=== PATIENT | female | born 1955 | race Two or more races ===

== ENCOUNTER 2021-06-28 18:27 | Inpatient (IN) | payer MEDICAID ==
[~2021-06-28] VITALS: Ht 167.6 cm; Wt 88.5 kg
[2021-06-28 22:19] LABS: HEMATOCRIT. 37.3 % (36.0-48.0); MEAN CORPUSCULAR HEMOGLOBIN 29.8 pg (28.0-32.0); MEAN CORPUSCULAR VOLUME 85.8 fL (81.0-99.0); MEAN PLATELET VOLUME 11.1 fl (7.4-10.4); PLATELET 173 x1000/uL (130-400); RED BLOOD CELL COUNT 4.35 mill/uL (4.2-5.4); RED CELL DISTRIBUTION WIDTH 14.2 % (11.6-14.6)
[2021-06-28 22:22] LABS: CHLORIDE 104 mEq/L (98-107)
[2021-06-28] MEDS ORDERED: ACETAMINOPHEN 325MG TABLET PO STA (22:41)
[2021-06-28] MEDS ORDERED: SODIUM CHLORIDE 0.9% 1,000 ML IV ONE (22:45)
[2021-06-28 22:58] LABS: PLATELET ESTIMATE NORMAL
[2021-06-28 23:41] LABS: CLARITY URINE CLEAR (CLEAR); COLOR URINE DARK YELLOW (YELLOW); KETONES URINE TRACE (NEGATIVE); LEUKOCYTE ESTERASE URINE 1+ (NEGATIVE); NITRITE URINE NEGATIVE (NEGATIVE); OCCULT BLOOD URINE NEGATIVE (NEGATIVE); PH URINE 6.5 (4.5-8.0); PROTEIN URINE 2+ (NEGATIVE); SPECIFIC GRAVITY URINE 1.026 (1.005-1.030)
[2021-06-28] MEDS ORDERED: DEXAMETHASONE 4MG/ML 1ML VIAL IV ONE (23:45)
[2021-06-29] MEDS ORDERED: CEFTRIAXONE 1 G PREMIX 50 ML IV ONE
[2021-06-29] MEDS ORDERED: ONDANSETRON HCL 4MG/2ML INJ IV PRN (09:45)
[2021-06-29] MEDS ORDERED: FUROSEMIDE 40MG/4ML VIAL IVP NR (09:45)
[2021-06-29] MEDS ORDERED: ALBUTEROL 6.7GM HFA INHALER ORI PRN (09:45)
[2021-06-29] MEDS ORDERED: ACETAMINOPHEN 325MG TABLET PO PRN (09:45)
[2021-06-29 21:35] VITALS: BP 122/73
[2021-06-29 21:45] VITALS: BP 98/53
[2021-06-29] MEDS: ENOXAPARIN 30MG/0.3ML SYR SUBCUT SCH (22:45)
[2021-06-29] MEDS ORDERED: CEFTRIAXONE 1,000 MG in DEXTROSE 5% WATER 50 ML IV SCH (23:00)
[2021-06-30] VITALS: BP 135/86
[2021-06-30] MEDS: CEFTRIAXONE 1,000 MG in DEXTROSE 5% WATER 50 ML IV SCH (00:03)
[2021-06-30 04:00] VITALS: BP 114/67
[2021-06-30 05:51] LABS: HEMOGLOBIN. 13.6 g/dL (12.0-16.0); MEAN CORPUSCULAR HEMOGLOBIN 28.6 pg (28.0-32.0); MEAN CORPUSCULAR VOLUME 86.4 fL (81.0-99.0); MEAN PLATELET VOLUME 11.4 fl (7.4-10.4); PLATELET 207 x1000/uL (130-400); RED BLOOD CELL COUNT 4.74 mill/uL (4.2-5.4); RED CELL DISTRIBUTION WIDTH 14.3 % (11.6-14.6)
[2021-06-30 06:25] LABS: CHLORIDE 108 mEq/L (98-107)
[2021-06-30 08:00] VITALS: BP 107/85
[2021-06-30] MEDS: DEXAMETHASONE 4MG TABLET PO SCH (08:50)
[2021-06-30] MEDS: ENOXAPARIN 30MG/0.3ML SYR SUBCUT SCH (08:50)
[2021-06-30] MEDS: AZITHROMYCIN 250 MG TABLET PO SCH (08:50)
[2021-06-30 11:50] VITALS: BP 109/76
[2021-06-30 13:27] LABS: PLATELET ESTIMATE NORMAL
[2021-06-30 14:11] LABS: BG BASE EXCESS 2.3 mmol/L (-2.0-2.0); BG CARBOXYHEMOGLOBIN 0.1 % (0.5-1.5); BG DEOXYHEMOGLOBIN 15.9 % (0.0-5.0); BG FRACTION INSPIRED OXYGEN 21; BG HCO3 ACT 25.4 mmol/L (22.0-26.0); BG METHEMOGLOBIN 0.4 % (0.0-1.5); BG OXYHEMOGLOBIN 83.6 % (94.0-97.0); BG PH 7.479 (7.350-7.450); BG SAMPLE SITE RIGHT RADIAL; BG TOTAL HEMOGLOBIN 14.2 g/dL (12.0-18.0); BG VENT MODE ROOM AIR
[2021-06-30 15:48] VITALS: BP 119/71
[2021-06-30] MEDS: KETOROLAC 15MG/ML VIAL IV PRN (17:45)
[2021-06-30 20:00] VITALS: BP 111/64
[2021-07-01 00:05] VITALS: BP 121/66
[2021-07-01] MEDS: CEFTRIAXONE 1,000 MG in DEXTROSE 5% WATER 50 ML IV SCH ×2 (00:12→23:33)
[2021-07-01 04:00] VITALS: BP 123/88
[2021-07-01 08:00] VITALS: BP 115/67
[2021-07-01] MEDS: DEXAMETHASONE 4MG TABLET PO SCH (08:03)
[2021-07-01] MEDS: ENOXAPARIN 40MG/0.4ML SYR SUBCUT SCH (08:03)
[2021-07-01] MEDS: AZITHROMYCIN 250 MG TABLET PO SCH (08:03)
[2021-07-01 12:00] VITALS: BP 141/75
[2021-07-01 16:00] VITALS: BP 133/79
[2021-07-01 20:00] VITALS: BP 131/82
[2021-07-01] MEDS: KETOROLAC 15MG/ML VIAL IV PRN (23:43)
[2021-07-02] VITALS: BP 153/89
[2021-07-02 04:00] VITALS: BP 150/83
[2021-07-02 08:00] VITALS: BP 154/72
[2021-07-02] MEDS: AZITHROMYCIN 250 MG TABLET PO SCH (08:09)
[2021-07-02] MEDS: DEXAMETHASONE 4MG TABLET PO SCH (08:09)
[2021-07-02] MEDS: ENOXAPARIN 40MG/0.4ML SYR SUBCUT SCH (08:10)
[2021-07-02 12:00] VITALS: BP 138/79
[2021-07-02 16:00] VITALS: BP 110/67
[2021-07-02 20:00] VITALS: BP 135/89
[2021-07-02] MEDS: DIPHENHYDRAMINE 50MG/ML VIAL IV PRN (22:00)
[2021-07-03] VITALS: BP 135/75
[2021-07-03] MEDS: CEFTRIAXONE 1,000 MG in DEXTROSE 5% WATER 50 ML IV SCH (00:39)
[2021-07-03 04:00] VITALS: BP 148/67
[2021-07-03 08:00] VITALS: BP 131/71
[2021-07-03] MEDS: DEXAMETHASONE 4MG TABLET PO SCH (08:16)
[2021-07-03] MEDS: AZITHROMYCIN 250 MG TABLET PO SCH (08:16)
[2021-07-03] MEDS: ENOXAPARIN 40MG/0.4ML SYR SUBCUT SCH (08:16)
[2021-07-03 12:00] VITALS: BP 133/76
[2021-07-03 16:00] VITALS: BP 139/69
[2021-07-03 19:20] LABS: BG BASE EXCESS 0.8 mmol/L (-2.0-2.0); BG CARBOXYHEMOGLOBIN 0.1 % (0.5-1.5); BG FRACTION INSPIRED OXYGEN 21; BG HCO3 ACT 23.6 mmol/L (22.0-26.0); BG METHEMOGLOBIN 0.3 % (0.0-1.5); BG OXYGEN SATURATION 86.9 % (92.0-98.5); BG OXYHEMOGLOBIN 86.6 % (94.0-97.0); BG PCO2 32.5 mmHg (35.0-45.0); BG PH 7.478 (7.350-7.450); BG PO2 51.1 mmHg (75.0-100.0); BG SAMPLE SITE RIGHT RADIAL; BG TOTAL HEMOGLOBIN 14.5 g/dL (12.0-18.0); BG VENT MODE ROOM AIR
[2021-07-03 20:00] VITALS: BP 109/69
[2021-07-03] MEDS ORDERED: GUAIFENESIN 200MG/10ML SUGAR FREE UDC PO PRN (21:00)
[2021-07-03] MEDS: DIPHENHYDRAMINE 50MG/ML VIAL IV PRN (22:18)
[2021-07-04] VITALS: BP 104/73
[2021-07-04] MEDS: CEFTRIAXONE 1,000 MG in DEXTROSE 5% WATER 50 ML IV SCH (00:32)
[2021-07-04 04:00] VITALS: BP 127/82
[2021-07-04 08:00] VITALS: BP 118/71
[2021-07-04] MEDS: DEXAMETHASONE 4MG TABLET PO SCH (09:16)
[2021-07-04] MEDS: ENOXAPARIN 40MG/0.4ML SYR SUBCUT SCH (09:16)
[2021-07-04] MEDS: AZITHROMYCIN 250 MG TABLET PO SCH (09:16)
[2021-07-04 12:00] VITALS: BP 120/69
[2021-07-04 16:00] VITALS: BP 118/80
[2021-07-04 20:00] VITALS: BP 115/77
[2021-07-05] VITALS: BP 118/84
[2021-07-05] MEDS: CEFTRIAXONE 1,000 MG in DEXTROSE 5% WATER 50 ML IV SCH (00:10)
[2021-07-05] MEDS ORDERED: ZOLPIDEM TARTRATE 5MG TABLET PO PRN (01:00)
[2021-07-05 04:00] VITALS: BP 121/79
[2021-07-05 08:00] VITALS: BP 112/74
[2021-07-05] MEDS: DEXAMETHASONE 4MG TABLET PO SCH (08:01)
[2021-07-05] MEDS: ENOXAPARIN 40MG/0.4ML SYR SUBCUT SCH (08:01)
[2021-07-05] MEDS: AZITHROMYCIN 250 MG TABLET PO SCH (08:01)
[2021-07-05 12:00] VITALS: BP 115/70
[2021-07-05 12:04] VITALS: BP 115/70
[2021-07-05 15:53] VITALS: BP 118/68
== END 2021-07-05 16:55 | disposition home or self-care (01) | DRG 137 ==
LOC: ER 18:27 → MICUSO 06-29 00:44 → EDBEDREQTM 06-29 00:49 → EDBEDREQSVC 06-29 00:49 → EDBEDREQ 06-29 00:49 → EDBEDREQDT 06-29 00:49 → 7WST 06-29 20:25
PROVIDERS: ADMIT Internal Medicine; ATTEND Internal Medicine
DX: U07.1 COVID-19 (principal); J96.01 Acute respiratory failure with hypoxia; J12.82 Pneumonia due to coronavirus disease 2019; E44.0 Moderate protein-calorie malnutrition; E66.9 Obesity, unspecified; F17.210 Nicotine dependence, cigarettes, uncomplicated; Z86.73 Personal history of transient ischemic attack (TIA), and cerebral infarction without residual deficits; Z71.6 Tobacco abuse counseling; Z68.31 Body mass index [BMI] 31.0-31.9, adult
CPT/HCPCS: 36415; 36600; 71045; 80048; 80053; 81003; 82375; 82805; 83880; 84484; 85025; 93005; 99291; J0696; J1100; J1200; J1650; J1885; J1940; J7030; J7040; J7060; J8540; U0003; U0005